=== PATIENT | female | born 1995 | race Two or more races ===

== ENCOUNTER 2017-02-13 15:12 | Emergency (ER) | payer SELFPAY ==
[~2017-02-13] VITALS: Ht 167.6 cm; Wt 65.0 kg
[2017-02-13 15:14] VITALS: BP 120/74
[2017-02-13] MEDS ORDERED: IBUPROFEN 600MG TABLET PO ONE (16:15)
== END 2017-02-13 16:45 | disposition home or self-care (01) ==
LOC: ER 15:12
DX: S00.83XA Contusion of other part of head, initial encounter (principal); Y08.89XA Assault by other specified means, initial encounter
CPT/HCPCS: 81025; 99283